=== PATIENT | male | born 1980 | race Caucasian/White ===

== ENCOUNTER 2017-11-22 20:39 | Emergency (ER) | payer OTHER ==
[~2017-11-22] VITALS: Ht 182.9 cm; Wt 79.6 kg
[2017-11-22] MEDS ORDERED: PEN-VEE K,VEET500 MG PO (21:32)
[2017-11-22] MEDS ORDERED: PERIDEX473 ML MM (21:32)
[2017-11-22] MEDS ORDERED: DICLOFENAC SODI50 MG PO (21:43)
[2017-11-22 22:00] VITALS: BP 135/79
== END 2017-11-22 23:02 | disposition home or self-care (01) ==
LOC: EME 20:39
DX: K02.9 Dental caries, unspecified (principal); R22.0 Localized swelling, mass and lump, head; F17.200 Nicotine dependence, unspecified, uncomplicated
CPT/HCPCS: 99281; 99284